=== PATIENT | female | born 1945 | race Caucasian/White ===

== ENCOUNTER → 2018-06-25 | Outpatient (CLI) | payer OTHER ==
[~2018-06-25] MED LIST: ANTIVERT25 MG PO; NOHOMEMEDICATIONS; ZOFRAN ODT4 MG PO
== END ==
LOC: M.RAD 06-18 07:25
DX: Z12.31 Encounter for screening mammogram for malignant neoplasm of breast (principal); M81.0 Age-related osteoporosis without current pathological fracture; Z78.0 Asymptomatic menopausal state

== ENCOUNTER → 2018-07-02 | Outpatient (CLI) | payer OTHER | LOC: M.RAD 06-27 11:22 | DX: N60.02 Solitary cyst of left breast (principal); N63.23 Unspecified lump in the left breast, lower outer quadrant; R92.2 Inconclusive mammogram ==

== ENCOUNTER → 2019-08-14 | Outpatient (CLI) | payer OTHER | LOC: M.RAD 09:00 | DX: M81.0 Age-related osteoporosis without current pathological fracture (principal) ==

== ENCOUNTER 2020-09-08 13:20 | Emergency (ER) | payer OTHER ==
[~2020-09-08] VITALS: Ht 154.9 cm; Wt 54.9 kg
[2020-09-08 13:53] LABS: ABSOLUTE LYMPHOCYTES 1.2 thou/uL (0.8-5.3); ABSOLUTE MONOCYTES 0.3 thou/uL (0.0-1.2); ABSOLUTE NEUTROPHILS 2.4 thou/uL (1.6-8.1); BASOPHILS 0.3 %; EOSINOPHILS 0.1 %; HEMATOCRIT 39.6 % (37.0-47.0); HEMOGLOBIN 13.3 gm/dL (12.0-15.0); LYMPHOCYTES 29.4 %; MCH 29.1 pg (26.0-34.0); MCHC 33.7 g/dL (28.0-37.0); MCV 86.5 fL (80.0-100.0); MONOCYTES 8.5 %; MPV 7.3 fl. (7.2-11.1); NUCLEATED RBCS 0 /100WBC; PLATELET COUNT* 190 thou/uL (150-400); POLYS 61.7 %; RBC 4.58 mil/uL (4.20-5.00); RDW-CV 13.2 % (10.5-14.5); WBC 3.9 thou/uL (4.0-11.0)
[2020-09-08 14:01] LABS: CALCIUM 8.7 mg/dL (8.5-10.1); POTASSIUM 3.5 mmol/L (3.5-5.1)
[2020-09-08 14:12] LABS: ALBUMIN 3.5 g/dL (3.4-5.0); DIRECT BILIRUBIN 0.2 mg/dL (<0.1-0.3); MAGNESIUM 2.1 mg/dL (1.8-2.4); TOTAL BILIRUBIN 0.5 mg/dL (<0.1-1.0); TOTAL PROTEIN 7.1 g/dL (6.4-8.2)
[2020-09-08 16:30] VITALS: BP 127/69
--- NOTE | 2020-09-09 14:11 | EKG ---
[place] [address] ELECTROCARDIOGRAM REPORT Name: JOSEPH ALLEN Room: [facility]#: [id number] Admission: 09/08/20 Attend Phys: Discharge: 09/08/20 Date of : 41 Date of Service: 09/08/20 1328 Report #: [id number] THIS REPORT FOR: //name// [facility] ED Test Date: 2020-09-08 Test Time: 13:28:37 Pat Name: JOSEPH ALLEN Department: Room: Gender: Mds Coordinator: [facility] : 1945 Requested By: Moses Whitehead Order Number: [id number] Anum MD: Carlitos Myles Measurements Intervals [place] Rate: 92 P: 61 MS: 158 QRS: -5 QRSD: 81 T: 59 QT: 341 QTc: 422 Interpretive Statements Sinus rhythm Atrial premature complexes Abnormal R-wave progression, early transition Baseline wander in lead(s) V5 Compared to ECG 04/16/2014 20:18:41 Atrial premature complex(es) now present Electronically Signed On 09-09-2020 14:11:44 TWISTHAND by Carlitos Myles [email or web address] <ELECTRONICALLY SIGNED> By: Carlitso Myles MD, [facility] 09/09/20 1411 1328 1328 Carlitos Myles MD, [facility] /EPI
--- NOTE | 2020-09-09 14:12 | EKG ---
[place] [address] ELECTROCARDIOGRAM REPORT Name: JOSEPH ALLEN Room: [facility]#: [id number] Admission: 09/08/20 Attend Phys: Discharge: 09/08/20 Date of : 41 Date of Service: 09/08/20 1330 Report #: [id number] THIS REPORT FOR: //name// [facility] ED Test Date: 2020-09-08 Test Time: 13:30:26 Pat Name: JOSEPH ALLEN Department: Room: Gender: Oncology Specialist: [facility] [place] : 1945 Requested By: Moses Whitehead Order Number: [id number] Reading MD: Carlitos Myles Measurements Intervals [place] Rate: 89 P: 58 MD: 162 QRS: -1 QRSD: 74 T: 60 QT: 344 QTc: 419 Interpretive Statements Sinus rhythm Atrial premature complexes Abnormal R-wave progression, early transition Compared to ECG 09/08/2020 13:28:37 ST (T wave) deviation no longer present Myocardial infarct finding no longer present Electronically Signed On 09-09-2020 14:11:56 HERB COUNSELOR by Carlitos Myles [email or web address] <ELECTRONICALLY SIGNED> By: Carlitos Myles MD, [facility] 09/09/20 1411 1330 1330 Carlitos Myles MD, [facility] /EPI
== END 2020-09-08 16:31 | disposition home or self-care (01) ==
LOC: M.ERS 13:20
PROVIDERS: Emergency Medicine
DX: U07.1 COVID-19 (principal); R07.89 Other chest pain; R09.1 Pleurisy

== ENCOUNTER → 2020-10-13 | Outpatient (CLI) | payer OTHER | LOC: M.ULTRA 10-05 10:00 | PROVIDERS: ATTEND Nurse Practitioner Family | DX: N28.9 Disorder of kidney and ureter, unspecified (principal) ==